=== PATIENT | female | born 1985 | race Caucasian/White ===

== ENCOUNTER 2019-03-31 21:35 | Emergency (ER) | payer OTHER ==
--- NOTE | 2019-03-31 23:10 | RAD REPORT ---
EXAM DESCRIPTION: Meagan Single View03/31/2019 11:03 pm CLINICAL HISTORY: Chest pain COMPARISON: 2008 FINDINGS: The lungs appear clear of acute infiltrate. The heart is normal size IMPRESSION: No acute abnormalities displayed
[2019-04-01 00:03] LABS: Absolute Lymphocytes (CBC) 1.4 K/uL (0.7-4.9); Basophils % 1.2 % (0-1.3); Eosinophils % 0.5 % (0-4.4); Hematocrit 37.7 % (36.0-45.0); Lymphocytes % 14.8 % (15.3-44.8); MPV 8.6 fL (7.6-11.3); Monocytes % 1.6 % (3.3-12.3); RBC Red Blood Cell Count 4.31 M/uL (3.86-4.86)
[2019-04-01 00:09] LABS: Potassium 4.3 mmol/L (3.5-5.1)
--- NOTE | 2019-04-01 02:08 | ER ---
Nurse's Notes [facility] Name: Karissa Llanos Age: 33 yrs Sex: Female : 1985 Arrival Date: 03/31/2019 Time: 21:40 Bed 30 Private MD: Eryn Lobato K Diagnosis: Bronchitis, not specified as acute or chronic Presentation: 03/31 21:52 Presenting complaint: Patient states: "I'm having shortness of breath, I couldn't sleep aj1 last night because I would have to sit up, and it was like that today." Patient also reports cough that is productive, and chest pain. States that she saw [facility] on and they gave her prednisone and a cough medication but she didn't start taking them until today. Denies fever. Transition of care: patient was not received from another setting of care. Onset of symptoms was March 31, 2019. Risk Assessment: Do you want to hurt yourself or someone else? Patient reports no desire to harm self or others. Initial Sepsis Screen: Does the patient meet any 2 criteria? No. Patient's initial sepsis screen is negative. Does the patient have a suspected source of infection? Yes: Productive cough/pneumonia. Care prior to arrival: None. 21:52 Method Of Arrival: Ambulatory aj 21:52 Acuity: SERENITY 3 aj1 Triage Assessment: 21:55 General: Appears in no apparent distress. uncomfortable, Behavior is calm, cooperative, aj1 appropriate for age. Pain: Complains of pain in chest Pain currently is 7 out of 10 on a pain scale. Neuro: Level of Consciousness is awake, alert, obeys commands, Oriented to person, place, time, situation. Cardiovascular: Reports chest pain, Patient's skin is warm and dry. Respiratory: Reports shortness of breath cough that is productive, Onset: The symptoms/episode began/occurred gradually, the patient has mild shortness of breath. 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 - Social history:: Smoking status: Patient/guardian denies using tobacco. - Ebola Screening: : Patient denies travel to an Ebola-affected area in the 21 days before illness onset. Screenin:30 Abuse screen: Denies threats or abuse. Denies injuries from another. Nutritional wh screening: No deficits noted. Tuberculosis screening: No symptoms or risk factors identified. Fall Risk None identified. Assessment: 23:05 General: Appears in no apparent distress. Behavior is calm, cooperative, appropriate wh for age. Pain: Complains of pain in chest Pain does not radiate. Pain currently is 3 out of 10 on a pain scale. Pain began 1 day ago. Neuro: Level of Consciousness is awake, alert, obeys commands, Oriented to person, place, time, situation, Appropriate for age Block Cuber are equal bilaterally. Cardiovascular: Reports chest pain, Heart tones S1 S2 Capillary refill < 3 seconds Rhythm is sinus rhythm. Respiratory: Airway is patent Respiratory effort is even, unlabored, Respiratory pattern is regular, symmetrical, Breath sounds are clear bilaterally. GI: Abdomen is flat, non-distended, Abd is soft and non tender X 4 quads. : No signs and/or symptoms were reported regarding the genitourinary system. EENT: No signs and/or symptoms were reported regarding the EENT system. Derm: Skin is intact, is healthy with good turgor, Skin is pink, warm \\T\\ dry. normal. Musculoskeletal: Range of motion: intact in all extremities. 04/01 00:35 Reassessment: Patient appears in no apparent distress at this time. Patient and/or family updated on plan of care and expected duration. Pain level reassessed. Patient is alert, oriented x 3, equal unlabored respirations, skin warm/dry/pink. 01:37 Reassessment: Patient appears in no apparent distress at this time. Patient and/or family updated on plan of care and expected duration. Pain level reassessed. Patient is alert, oriented x 3, equal unlabored respirations, skin warm/dry/pink. Vital Signs: 03/31 21:55 BP 140 / 82; Pulse 90; Resp 18; Temp 97.3; Pulse Ox 100% on R/A; Weight 108.86 kg (R); aj1 Height 5 ft. 7 in. (170.18 cm) (R); 23:02 BP 117 / 84; Pulse 81; Resp 18; Pulse Ox 98% on R/A; 04/01 00:00 BP 115 / 70; Pulse 80; Resp 18; Pulse Ox 100% on R/A; 00:30 BP 128 / 61; Pulse 91; Resp 18; Pulse Ox 94% on R/A; 01:30 BP 105 / 59; Pulse 76; Resp 16; Pulse Ox 97% on R/A; 03/31 21:55 Body Mass Index 37.59 (108.86 kg, 170.18 cm) aj1 ED Course: 03/31 21:40 Patient arrived in ED. es 21:40 Eryn Lobato MD is Private Physician. es 21:48 Dean Molina MD is Attending Physician. kdr 21:54 Triage completed. aj1 21:55 Arm band placed on Patient placed in an exam room. aj1 22:53 Jason Heart is Primary Nurse. 23:00 CXR XRAY In Process Unspecified. EDMS 23:30 Patient has correct armband on for positive identification. Bed in low position. Call light in reach. Side rails up X 1. youth nutritional monitor on. Pulse ox on. NIBP on. 23:30 Inserted saline lock: 22 gauge in right antecubital area, using aseptic technique. Blood collected. 04/01 02:07 Eryn Lobato MD is Referral Physician. kdr 02:19 No provider procedures requiring assistance completed. IV discontinued, intact, bleeding controlled, No redness/swelling at site. Administered Medications: No medications were administered Outcome: 02:08 Discharge ordered by . kdr 02:19 Discharged to home ambulatory. 02:19 Condition: good 02:19 Discharge instructions given to patient, Instructed on discharge instructions, follow up and referral plans. medication usage, POC Bronchitis Demonstrated understanding of instructions, follow-up care, medications, POC Prescriptions given X 1. 02:20 Patient left the ED. Signatures: Dispatcher [employer] Rosa Canas, RN RN aj1 Dean Molina MD MD kdr Salyer, Edna es Habalo, Winsy
--- NOTE | 2019-04-01 02:09 | EDPHYS ---
Physician Documentation [facility] Name: Karissa Llanos Age: 33 yrs Sex: Female : 1985 Arrival Date: 03/31/2019 Time: 21:40 Bed 30 Private MD: Eryn Lobato K ED Physician Dean Molina HPI: 04/01 03:21 This 33 yrs old Female presents to ER via Ambulatory with complaints of kdr Shortness Of Breath, Chest Pain. 03:21 The patient has shortness of breath at rest, with light activity. Onset: The kdr symptoms/episode began/occurred suddenly, 2 day(s) ago. Duration: The symptoms are intermittent, with no pattern. The patient's shortness of breath is aggravated by light activity. 05:48 Associated signs and symptoms: Pertinent positives: productive cough, nausea, Pertinent kdr negatives: chest pain, diaphoresis, fever, hemoptysis, loss of consciousness, visual changes, vomiting. Severity of symptoms: At their worst the symptoms were moderate today, last night, in the emergency department the symptoms have improved moderately. The patient has not experienced similar symptoms in the past. The patient has been recently seen by a physician: Utilized a teledoc and was given cough pills and steroids a few days ago but only took her first dose about 6:00 PM today. HOG KILLER: 03/31 21:55 LMP 03/2019 aj1 Historical: - Allergies: 21:55 No Known Allergies; aj1 - Home Meds: 21:55 Latuda oral oral [Active]; vybriid [Active]; aj1 - PMHx: 21:55 None; aj1 - PSHx: 21:55 Cholecystectomy; Tonsillectomy; aj1 - Immunization history:: Flu vaccine is not up to date. - Social history:: Smoking status: Patient/guardian denies using tobacco. - Ebola Screening: : Patient denies travel to an Ebola-affected area in the 21 days before illness onset. ROS: 04/01 05:48 Constitutional: Negative for fever, chills, and weight loss, Eyes: Negative for injury, kdr pain, redness, and discharge, Neck: Negative for injury, pain, and swelling, Cardiovascular: Negative for chest pain, palpitations, and edema, Abdomen/GI: Negative for abdominal pain, nausea, vomiting, diarrhea, and constipation, Back: Negative for injury and pain, : Negative for injury, bleeding, discharge, and swelling, MS/Extremity: Negative for injury and deformity, Skin: Negative for injury, rash, and discoloration, Neuro: Negative for headache, weakness, numbness, tingling, and seizure activity. Psych: Negative for depression, anxiety, suicide ideation, homicidal ideation, and hallucinations, Allergy/Immunology: Negative for hives, rash, and allergies, Endocrine: Negative for neck swelling, polydipsia, polyuria, polyphagia, and marked weight changes, Hematologic/Lymphatic: Negative for swollen nodes, abnormal bleeding, and unusual bruising. Respiratory: Positive for cough, dyspnea on exertion, shortness of breath, at rest. Exam: 05:48 Constitutional: This is a well developed, well nourished patient who is awake, alert, kdr and in no acute distress. Head/Face: Normocephalic, atraumatic. Eyes: Pupils equal round and reactive to light, extra-ocular motions intact. Lids and lashes normal. Conjunctiva and sclera are non-icteric and not injected. Cornea within normal limits. Periorbital areas with no swelling, redness, or edema. Neck: Trachea midline, no thyromegaly or masses palpated, and no cervical lymphadenopathy. Supple, full range of motion without nuchal rigidity, or vertebral point tenderness. No Meningismus. Chest/axilla: Normal chest wall appearance and motion. Nontender with no deformity. No lesions are appreciated. Cardiovascular: Regular rate and rhythm with a normal S1 and S2. No gallops, murmurs, or rubs. Normal PMI, no JVD. No pulse deficits. Respiratory: Lungs have equal breath sounds bilaterally, clear to auscultation and percussion. No rales, rhonchi or wheezes noted. No increased work of breathing, no retractions or nasal flaring. Abdomen/GI: Soft, non-tender, with normal bowel sounds. No distension or tympany. No guarding or rebound. No evidence of tenderness throughout. Back: No spinal tenderness. No costovertebral tenderness. Full range of motion. Skin: Warm, dry with normal turgor. Normal color with no rashes, no lesions, and no evidence of cellulitis. MS/ Extremity: Pulses equal, no cyanosis. Neurovascular intact. Full, normal range of motion. Neuro: Awake and alert, GCS 15, oriented to person, place, time, and situation. Cranial nerves II-XII grossly intact. Motor strength 5/5 in all extremities. Sensory grossly intact. Cerebellar exam normal. Normal gait. Psych: Awake, alert, with orientation to person, place and time. Behavior, mood, and affect are within normal limits. Vital Signs: 03/31 21:55 BP 140 / 82; Pulse 90; Resp 18; Temp 97.3; Pulse Ox 100% on R/A; Weight 108.86 kg (R); aj1 Height 5 ft. 7 in. (170.18 cm) (R); 23:02 BP 117 / 84; Pulse 81; Resp 18; Pulse Ox 98% on R/A; wh 04/01 00:00 BP 115 / 70; Pulse 80; Resp 18; Pulse Ox 100% on R/A; wh 00:30 BP 128 / 61; Pulse 91; Resp 18; Pulse Ox 94% on R/A; wh 01:30 BP 105 / 59; Pulse 76; Resp 16; Pulse Ox 97% on R/A; wh 03/31 21:55 Body Mass Index 37.59 (108.86 kg, 170.18 cm) aj1 MDM: 02:08 Patient medically screened. kdr 05:48 Data reviewed: vital signs, nurses notes, lab test result(s), radiologic studies. kdr Counseling: I had a detailed discussion with the patient and/or guardian regarding: the historical points, exam findings, and any diagnostic results supporting the discharge/admit diagnosis, lab results, radiology results, the need for outpatient follow up. 03/31 22:48 Order name: CBC with Diff; Complete Time: 01:00 kdr 03/31 22:48 Order name: Chem 7; Complete Time: 01:00 kdr 03/31 22:48 Order name: CXR XRAY; Complete Time: 23:56 kdr Administered Medications: No medications were administered Disposition: 04/01/19 02:08 Discharged to Home. Impression: Bronchitis, not specified as acute or chronic. - Condition is Stable. - Discharge Instructions: How to Use an Inhaler, Acute Bronchitis, [id number], Upper Respiratory Infection, Adult, [id number]. - Prescriptions for Albuterol Sulfate 90 mcg/actuation - inhale 1-2 puff by INHALATION route every 4-6 hours; 1 Inhaler. - Medication Reconciliation Form, Thank You Letter form. - Follow up: Eryn Lobato MD; When: 2 - 3 days; Reason: If symptoms return, Further diagnostic work-up, Recheck today's complaints, Continuance of care, Re-evaluation by your physician. - Problem is an ongoing problem. - Symptoms have improved. Signatures: Dispatcher [employer] EDRosa Cavazos RN RN aj1 Dean Molina MD MD kdr Habalo, Winsy Corrections: (The following items were deleted from the chart) 02:20 02:08 04/01/2019 02:08 Discharged to Home. Impression: Bronchitis, not specified as wh acute or chronic. Condition is Stable. Forms are Medication Reconciliation Form, Thank You Letter, Antibiotic Education, Prescription Opioid Use. Follow up: Eryn Lobato; When: 2 - 3 days; Reason: If symptoms return, Further diagnostic work-up, Recheck today's complaints, Continuance of care, Re-evaluation by your physician. Problem is an ongoing problem. Symptoms have improved. kdr
--- NOTE | 2019-04-01 09:36 | EKG ---
Test Date: 2019-03-31 Test Time: 22:38:20 Photogrammetric Compilation Specialist: MARQUIS MEASUREMENT RESULTS: Intervals: Rate: 68 SD: 116 QRSD: 84 QT: 392 QTc: 416 [place]: P: 39 SD: 116 QRS: 58 T: 38 INTERPRETIVE STATEMENTS: Normal sinus rhythm Normal ECG No previous ECG available for comparison Electronically Signed On 04-01-19 09:35:35 CDT by Gerardo Marquez
== END 2019-04-01 02:20 | disposition home or self-care (01) ==
LOC: ER 21:35
DX: J40 Bronchitis, not specified as acute or chronic (principal)
CPT/HCPCS: 36415; 71045; 80048; 85025; 93005; 99284

== ENCOUNTER 2023-12-14 11:51 | Emergency (ER) | payer BC ==
--- NOTE | 2023-12-14 13:50 | EDPHYS ---
Physician Documentation [facility] Name: Karissa Llanos Age: 38 yrs Sex: Female : 1985 Arrival Date: 12/14/2023 Time: 11:51 Bed 10 Private MD: ED Physician Al Leiva HPI: 12/13 12:36 This 38 yrs old Female presents to ER via Ambulatory with complaints of ec2 Vaginal Rash. 12:36 Arrives today due to concern for vaginal rash. Patient reports that she has been ec2 experiencing a rash in the perineum, states that it has been ongoing for several days. States that she has a burning sensation in that area. Patient reports no dysuria. Patient reports no fevers or chills, nausea or vomiting. Denies any vaginal discharge. Reports she is currently on her period.. Historical: - Allergies: 12:13 Morphine; nj1 - PMHx: 12:13 ADD; Anxiety; Depression; nj1 - PSHx: 12:13 Cholecystectomy; Gastric bypass; Tonsillectomy; nj1 - Immunization history:: Client reports receiving the 2nd dose of the Covid vaccine. - Infectious Disease History:: Denies. - Social history:: Smoking status: Reported history of juuling and/or vaping. ROS: 12:36 Constitutional: as per hpi ec2 Exam: 12:36 Constitutional: GEN: NAD Head: atraumatic Eyes: EOMI Ears: External ears are ec2 normal. CV: regular rate LUNGS: no respiratory distress ABD: non-distended, soft, nontender, no guarding, not rigid SKIN: no evidence of rashes MSK: no evidence of trauma NEURO: moves all extremities equally Vital Signs: 12:09 BP 138 / 51; Pulse 92; Resp 16; Temp 98.7(O); Pulse Ox 100% on R/A; Weight 99.79 kg; nj1 Height 5 ft. 7 in. ; Pain 7/10; 13:51 BP 133 / 66; Pulse 80; Resp 18; Pulse Ox 99% on R/A; rs5 12:09 Body Mass Index 34.46 (99.79 kg, 170.18 cm) nj1 12:09 Pain Scale: Adult nj1 MDM: 12:15 Patient medically screened. ec2 12:36 Data reviewed: vital signs. ED course: Patient arrives today due to concern for vaginal ec2 rash. Examination remarkable for well-appearing nontoxic dividual is otherwise in no acute distress with a reassuring examination. Will perform pelvic examination and send urine studies down to evaluate for GC/chlamydia, perform vaginal swabs as well.. 13:09 ED course: Vaginal examination performed under supervision, ZELDA Rivera. Multiple ec2 painful ulcerated lesions noted within the vaginal canal as well as the labia majora.. 13:10 ED course: Lesions concerning for herpes, will send HSV testing and start the patient ec2 empirically on antiviral. I extensively counseled the patient regarding safe sex practices and informing sexual partners.. 13:48 ED course: Performed an HSV swab and sent to lab. Without the patient. Plan acyclovir. ec2 Patient discharged home. Return precautions given. 14:02 ED course: Patient without any specific urinary complaints, urine does like ec2 questionably infectious however no symptoms, will defer to culture, additionally patient does have RBCs, patient is likely when her period.. 12/13 12:36 Order name: UAM; Complete Time: 14:01 ec2 12/13 12:54 Order name: GC (Dre/Chl) Probe URINE bc6 12/13 13:14 Order name: HSV Culture and Typing [facility] 12/13 13:58 Order name: Urine Culture [facility] / 12:01 Order name: Pelvic Exam Setup; Complete Time: 12:18 ec2 Administered Medications: No medications were administered Disposition Summary: 12/14/23 13:49 Discharge Ordered Notes: Location: Home ec2 Condition: Stable ec2 Diagnosis - Vaginal Rash ec2 Followup: ec2 - With: Private Physician - When: - Reason: Re-evaluation by your physician Discharge Instructions: - Discharge Summary Sheet ec2 - Genital Herpes ec2 Forms: - Medication Reconciliation Form ec2 - Thank You Letter ec2 - Antibiotic Education ec2 - Prescription Opioid Use ec2 - Patient Portal Instructions ec2 - Leadership Thank You Letter ec2 Prescriptions: - valacyclovir 1 gram Oral tablet - take 1 tablet ORAL route 2 times per day for 7 days; 14 tablet; Refills: 0, ec2 Product Selection Permitted - Acyclovir 400 mg Oral tablet - take 1 tablet ORAL route every 8 hours for 7 days; 21 tablet; Refills: 0, ec2 Product Selection Permitted Signatures: Dispatcher [employer] Marielena Clemens, RN RN nj1 Al Leiva, MD ec2
--- NOTE | 2023-12-14 13:50 | ER ---
Nurse's Notes [facility] Name: Karissa Llanos Age: 38 yrs Sex: Female : 1985 Arrival Date: 12/14/2023 Time: 11:51 Bed 10 Private MD: Diagnosis: Vaginal Rash Presentation: 12/13 12:09 Chief complaint: Patient states: Vaginal pain for 3 days along with irritation and nj1 burning sensation. Tried to call OBGYN, no answer. Coronavirus screen: Vaccine status: Patient reports receiving the 2nd dose of the covid vaccine. Ebola Screen: Patient denies travel to an Ebola-affected area in the 21 days before illness onset. Initial Sepsis Screen: Does the patient meet any 2 criteria? No. Patient's initial sepsis screen is negative. Does the patient have a suspected source of infection? No. Patient's initial sepsis screen is negative. Risk Assessment: Do you want to hurt yourself or someone else? Patient reports no desire to harm self or others. Onset of symptoms was December 12, 2023. 12:09 Method Of Arrival: Ambulatory [facility] 12:09 Acuity: SERENITY 4 nj1 Triage Assessment: 12:10 General: Appears in no apparent distress. uncomfortable, Behavior is calm, cooperative, nj1 appropriate for age. Historical: - Allergies: 12:13 Morphine; nj1 - PMHx: 12:13 ADD; Anxiety; Depression; nj1 - PSHx: 12:13 Cholecystectomy; Gastric bypass; Tonsillectomy; nj1 - Immunization history:: Client reports receiving the 2nd dose of the Covid vaccine. - Infectious Disease History:: Denies. - Social history:: Smoking status: Reported history of juuling and/or vaping. Screenin:16 [facility] ED Fall Risk Assessment (Adult) History of falling in the last 3 months, rs5 including since admission No falls in past 3 months (0 pts) Confusion or Disorientation No (0 pts) Intoxicated or Sedated No (0 pts) Impaired Gait No (0 pts) Mobility Assist Device Used No (0 pt) Altered Elimination No (0 pt) Score/Fall Risk Level 0 - 2 = Low Risk Oriented to surroundings, Maintained a safe environment. Abuse screen: Denies threats or abuse. Nutritional screening: No deficits noted. Tuberculosis screening: No symptoms or risk factors identified. Assessment: 12:15 General: Appears in no apparent distress. uncomfortable, Behavior is calm, cooperative. rs5 12:15 Pain: Complains of pain in vaginal area Pain currently is 4 out of 10 on a pain scale. rs5 Quality of pain is described as aching, Is continuous. 12:15 Neuro: Level of Consciousness is awake, alert, obeys commands, Oriented to person, rs5 place, time, situation. Cardiovascular: Patient's skin is warm and dry. Rhythm is regular. Respiratory: Airway is patent Respiratory effort is even, unlabored, Respiratory pattern is regular, symmetrical. GI: Abdomen is round non-distended, Abd is soft and non tender X 4 quads. : Reports vaginal itching. EENT: No signs and/or symptoms were reported regarding the EENT system. Derm: Skin is pink, warm \T\ dry. Musculoskeletal: Circulation, motion, and sensation intact. 13:06 Reassessment: No changes from previously documented assessment. rs5 13:50 Reassessment: Patient and/or family updated on plan of care and expected duration. Pain rs5 level reassessed. Patient is alert, oriented x 3, equal unlabored respirations, skin warm/dry/pink. provider at bedside. Vital Signs: 12:09 BP 138 / 51; Pulse 92; Resp 16; Temp 98.7(O); Pulse Ox 100% on R/A; Weight 99.79 kg; nj1 Height 5 ft. 7 in. ; Pain 7/10; 13:51 BP 133 / 66; Pulse 80; Resp 18; Pulse Ox 99% on R/A; rs5 12:09 Body Mass Index 34.46 (99.79 kg, 170.18 cm) nj1 12:09 Pain Scale: Adult nj1 ED Course: 11:52 Patient arrived in ED. rg4 12:00 Al Leiva MD is Attending Physician. ec2 12:13 Triage completed. nj1 12:15 Arm band placed on right wrist. nj1 12:16 Patient has correct armband on for positive identification. Placed in gown. Bed in low rs5 position. Call light in reach. Side rails up X2. 12:16 No provider procedures requiring assistance completed. rs5 12:41 Christina Rao, RN is Primary Nurse. iw 13:00 GC (Dre/Chl) Probe URINE Sent. bc6 13:00 UAM Sent. bc6 14:02 Patient did not have IV access during this emergency room visit. rs5 Administered Medications: No medications were administered Medication: 13:08 VIS not applicable for this client. rs5 Outcome: 13:49 Discharge ordered by . ec2 14:02 Discharged to home ambulatory, rs5 14:02 Condition: stable 14:02 Discharge instructions given to patient, family, Instructed on discharge instructions, follow up and referral plans. medication usage, Demonstrated understanding of instructions, follow-up care, medications, Prescriptions given X 2, 14:02 Patient left the ED. rs5 Signatures: Christina Rao, RN RN Lili Chou 4 Kenny Love RN RN rs5 Cassie Reyna 6 Marielena Can RN RN nj1 Al Leiva MD MD ec2 Corrections: (The following items were deleted from the chart) 12:45 12:05 General: Appears in no apparent distress. uncomfortable, Behavior is calm, nj1 cooperative, appropriate for age, nj1 13:06 12:15 General: Appears rs5 rs5
[2023-12-14 13:55] LABS: Specific Gravity > 1.030 (1.005-1.030); Urine Bacteria 20-50 /HPF (<20); Urine Bilirubin NEGATIVE (Negative); Urine Blood 3+ (OVER) (Negative); Urine Clarity Extremely Turbid (Clear); Urine Color Yellow (Yellow); Urine Culture Reflex Order REFLEXED; Urine Glucose 2+ (Negative); Urine Ketones TRACE (Negative); Urine Micro Reflex YN NO BILL MICROSCOPIC; Urine Mucus 4+ /HPF (None Seen); Urine Nitrite NEGATIVE (Negative); Urine Protein 1+ (Negative); Urine RBC >50 /HPF (None Seen); Urine Urobilinogen 2+ (Normal); Urine WBC >50 /HPF (<5)
[2023-12-14 19:11] VITALS: BP 133/66; TEMP 98.7; O2SAT 99
[2023-12-16 19:11] LABS: C.trachomatis RNA,TMA Not Detected (Not Detected); N.gonorrhoeae RNA,TMA Not Detected (Not Detected)
== END 2023-12-14 14:02 | disposition home or self-care (01) ==
LOC: ER 11:51
DX: R21 Rash and other nonspecific skin eruption (principal); Z88.5 Allergy status to narcotic agent
CPT/HCPCS: 81001; 87077; 87086; 87088; 87186; 87255; 87490; 87590; 99283

== ENCOUNTER 2024-10-23 15:04 | Emergency (ER) | payer BC, SELFPAY ==
[2024-10-23] MEDS ORDERED: KETOROLAC 30 MG/ML INJ ONE (15:40)
[2024-10-23 16:09] LABS: Absolute Eosinophils 0.1 K/uL (0-0.5); Absolute Monocytes 0.5 K/uL (0.1-1.3); Absolute Neutrophil 3.8 K/uL (1.8-8.0); Basophils % 0.9 % (0-1.3); Eosinophils % 2.5 % (0-4.4); Hematocrit 23.6 % (36.0-45.0); Hemoglobin 6.9 g/dL (12.0-15.0); Lymphocytes % 18.1 % (15.3-44.8); MCH 18.1 pg (27.0-35.0); MCHC 29.2 g/dL (32.0-36.0); MCV 61.9 fL (80-100); MPV 7.5 fL (7.6-11.3); Monocytes % 8.7 % (3.3-12.3); Neutrophils % 69.8 % (41.7-73.7); Nucleated Red Blood Cells % 0.1 % (0-0); Platelets 264 thou/uL (152-406); RBC Red Blood Cell Count 3.82 M/uL (3.86-4.86); Red Cell Distribution Width 17.4 % (12.1-15.2)
[2024-10-23 16:10] LABS: Blood Morphology Comment NOTED (NOT SEEN); Hypochromasia 2+; Microcytosis 2+; Platelet Estimate ADEQ; White Blood Cell Scan OK (OK)
[2024-10-23 16:20] LABS: Anion Gap 8.9 mEq/L (5.0-15.0); Potassium 3.9 mEq/L (3.5-5.1)
--- NOTE | 2024-10-23 16:37 | RAD REPORT ---
EXAM: Chest Single View HISTORY: Cough;Dyspnea COMPARISON: 03/31/2019 FINDINGS: LUNGS/PLEURA: The lungs are clear. No pleural effusions or pneumothorax. No pulmonary edema. MEDIASTINUM: The mediastinal silhouette is within normal limits. CARDIAC: The cardiac silhouette is within normal limits. UPPER ABDOMEN: No significant abnormality. BONES: No acute abnormality. LINES/TUBES/OTHER: N/A IMPRESSION: No evidence of acute cardiopulmonary disease.
[2024-10-23 16:41] LABS: SARS-CoV-2 Antigen CONTROL BLUE LINE VIS/BG OK; SARS-CoV-2 Antigen Rapid Res Negative (Negative)
[2024-10-23 17:19] LABS: Thyroid Stimulating Hormone 0.886 uIU/mL (0.358-3.740)
[2024-10-23] MEDS ORDERED: NA CHLORIDE 0.9% 500 ML ONE (19:30)
[2024-10-23] MEDS ORDERED: ACETAMINOPHEN 500 MG TAB ONE (20:17)
--- NOTE | 2024-10-24 01:48 | EDPHYS ---
Physician Documentation [facility] Name: Karissa Llanos Age: 39 yrs Sex: Female : 1985 Arrival Date: 10/23/2024 Time: 15:04 Bed 19 Private MD: ED Physician Al Leiva HPI: 10/23 16:07 This 39 yrs old Female presents to ER via Wheelchair with complaints of General rn Weakness, Other, throat problem. 16:07 Patient reports generalized weakness, malaise, myalgias that began today. Associated rn with sore throat. No documented fever but reports subjective fever and chills. No shortness of breath. Does report mild cough.. Onset: The symptoms/episode began/occurred today. Severity of symptoms: At their worst the symptoms were mild in the emergency department the symptoms are unchanged. The patient has not experienced similar symptoms in the past. The patient has not recently seen a physician. Historical: - Allergies: 15:23 Morphine; aa5 - PMHx: 15:23 ADD; Anxiety; Depression; aa5 - PSHx: 15:23 Cholecystectomy; Gastric Bypass; Tonsillectomy; aa5 - Immunization history:: Adult Immunizations unknown. - Infectious Disease History:: Denies. - Social history:: Smoking status: Reported history of juuling and/or vaping. - Family history:: pertinent for Rheumatologic problems. - Hospitalizations: : No recent hospitalization is reported. ROS: 16:07 Constitutional: Positive for subjective fever Eyes: Negative for injury, pain, redness, rn and discharge, ENT: Positive for sore throat Neck: Negative for injury, pain, and swelling, Cardiovascular: Negative for chest pain, palpitations, and edema, Respiratory: Positive for cough Abdomen/GI: Negative for abdominal pain, nausea, vomiting, diarrhea, and constipation, MS/Extremity: Negative for injury and deformity, Skin: Negative for injury, rash, and discoloration, Neuro: Positive for generalized weakness and malaise with myalgias Exam: 16:07 Constitutional: This is a well developed, well nourished patient who is awake, alert, rn and in no acute distress. Head/Face: Normocephalic, atraumatic. ENT: No stridor, mild pharyngeal erythema, no exudate Neck: Nontender cervical lymphadenopathy. No crepitus. No meningismus Cardiovascular: Regular rate and rhythm. No pulse deficits. Respiratory: No increased work of breathing, no retractions or nasal flaring. Skin: Warm, dry, no rash MS/ Extremity: Pulses equal, no cyanosis. Neuro: Awake and alert, GCS 15 Vital Signs: 15:21 BP 124 / 91; Pulse 96; Resp 18 S; Temp 98.7(O); Pulse Ox 100% on R/A; Weight 95.25 kg aa5 (R); Height 5 ft. 7 in. (R); 19:00 BP 134 / 97; Pulse 88; Resp 16; Temp 98; Pulse Ox 100% ; bp 19:38 BP 120 / 78; Pulse 87; Resp 16; Temp 98.4(O); Pulse Ox 100% on R/A; dd2 22:23 BP 128 / 67; Pulse 86; Resp 16; Temp 98.2; Pulse Ox 100% on R/A; dd2 22:47 BP 130 / 54; Pulse 90; Resp 16; Temp 98.3(O); Pulse Ox 100% on R/A; dd2 10/24 01:35 BP 124 / 74; Pulse 84; Resp 16; Temp 98.3; Pulse Ox 100% on R/A; dd2 10/23 15:21 Body Mass Index 32.89 (95.25 kg, 170.18 cm) [place] [employer] [facility] 10/23 19:38 see transfusion flow sheet for v/s dd2 22:47 see transfusion flow sheet for v/s dd2 MDM: 15:09 Medical Screening Exam initiated rn 20:00 Data reviewed: vital signs, nurses notes. ED course: Patient s/o to nh w/ pending blood ec2 tx, hx of CHALINO, plan to transfuse then d/c. 10/24 01:47 ED course: Patient tolerated blood transfusion without issue. Will discharge home. ec2 Return precautions given.. 10/23 17:09 Order name: Type And Screen rn 10/23 15:15 Order name: Flu; Complete Time: 16:54 rn 10/23 15:15 Order name: SARS-COV-2 Antigen Rapid; Complete Time: 16:54 rn 10/23 15:15 Order name: Strep rn 10/23 15:15 Order name: CK; Complete Time: 16:54 rn 10/23 15:15 Order name: CBC with Diff; Complete Time: 16:54 rn 10/23 15:15 Order name: Basic Metabolic Panel; Complete Time: 16:54 rn 10/23 15:21 Order name: TSH; Complete Time: 18:11 rn 10/23 15:21 Order name: T4 Free; Complete Time: 18:11 rn 10/23 16:10 Order name: CBC Smear Scan; Complete Time: 16:54 EDMS 10/23 16:45 Order name: Throat Culture ED[facility] 10/23 17:12 Order name: Bb Add On bd 10/23 18:11 Order name: Packed RBC Leukored ED[facility] 10/23 18:30 Order name: ABO/RH no charge; Complete Time: 20:57 EDMS 10/23 15:15 Order name: XRAY Chest (1 view); Complete Time: 16:54 rn 10/23 15:15 Order name: EKG; Complete Time: 15:15 rn 10/23 15:15 Order name: IV Start; Complete Time: 15:52 rn 10/23 15:15 Order name: EKG - Nurse/Tech; Complete Time: 19:32 rn 10/23 18:11 Order name: Transfuse; Complete Time: 01:35 rn Administered Medications: 10/23 15:52 Drug: Ketorolac IVP 15 mg IVP once Route: IVP; Site: right antecubital; bp 16:55 Follow up: Response: No adverse reaction bp 20:28 Drug: Acetaminophen PO 1000 mg PO once Route: PO; dd2 20:58 Follow up: Response: No adverse reaction dd2 Disposition Summary: 10/24/24 01:47 Discharge Ordered Notes: Location: Home ec2 Condition: Stable ec2 Diagnosis - Anemia, unspecified ec2 Followup: ec2 - With: Private Physician - When: - Reason: Re-evaluation by your physician Discharge Instructions: - Discharge Summary Sheet ec2 - Blood Transfusion, Adult ec2 Forms: - Medication Reconciliation Form ec2 - Antibiotic Education ec2 - Prescription Opioid Use ec2 - Patient Portal Instructions ec2 - Leadership Thank You Letter ec2 - Work release form dd2 Critical care time excluding procedures: 20:59 Critical care time: Bedside Care: 30 minutes. Total time: 30 minutes ec2 Signatures: Dispatcher [employer] EDDavid Pittman MD MD rn Calderon, Audri, RN RN aa5 Carl Dave RN RN bp Al Leiva MD MD ec2 BESSIE GALLEGOS RN RN dd2 Corrections: (The following items were deleted from the chart) 15: 15:21 THYROID STIMULAT HORMONE+C.LAB.BRZ ordered. EDMS EDMS 15: 15:21 T4 FREE+C.LAB.BRZ ordered. EDMS EDMS
--- NOTE | 2024-10-24 01:48 | ER ---
Nurse's Notes [facility] Name: Karissa Llanos Age: 39 yrs Sex: Female : 1985 Arrival Date: 10/23/2024 Time: 15:04 Bed 19 Private MD: Diagnosis: Anemia, unspecified Presentation: 10/23 15:21 Chief complaint: Patient states: Body aches that started today, pt states "my legs hurt aa5 the worst and it hurt so bad just driving here". Pt states "my esophagus just feels like it closes up and it hurts to eat". Coronavirus screen: muscle pain. Ebola Screen: Patient denies travel to an Ebola-affected area in the 21 days before illness onset. Initial Sepsis Screen: Does the patient meet any 2 criteria? HR > 90 bpm. Does the patient have a suspected source of infection? No. Patient's initial sepsis screen is negative. Risk Assessment: Do you want to hurt yourself or someone else? Patient reports no desire to harm self or others. Onset of symptoms was October 2024. 15:21 Acuity: SERENITY 3 aa5 15:21 Method Of Arrival: Wheelchair aa5 Triage Assessment: 15:30 General: Appears in no apparent distress. Behavior is cooperative, appropriate for age, bp anxious. Pain: Complains of pain in GENERALIZED. EENT: No deficits noted. Neuro: No deficits noted. Cardiovascular: No deficits noted. Respiratory: No deficits noted. GI: No signs and/or symptoms were reported involving the gastrointestinal system. : No signs and/or symptoms were reported regarding the genitourinary system. Derm: No deficits noted. Musculoskeletal: No deficits noted. Historical: - Allergies: 15:23 Morphine; aa5 - PMHx: 15:23 ADD; Anxiety; Depression; aa5 - PSHx: 15:23 Cholecystectomy; Gastric Bypass; Tonsillectomy; aa5 - Immunization history:: Adult Immunizations unknown. - Infectious Disease History:: Denies. - Social history:: Smoking status: Reported history of juuling and/or vaping. - Family history:: pertinent for Rheumatologic problems. - Hospitalizations: : No recent hospitalization is reported. Screenin:30 [facility] ED Fall Risk Assessment (Adult) History of falling in the last 3 months, bp including since admission No falls in past 3 months (0 pts) Confusion or Disorientation No (0 pts) Intoxicated or Sedated No (0 pts) Impaired Gait No (0 pts) Mobility Assist Device Used No (0 pt) Altered Elimination No (0 pt) Score/Fall Risk Level 0 - 2 = Low Risk Oriented to surroundings. Abuse screen: Denies threats or abuse. Denies injuries from another. Nutritional screening: No deficits noted. Tuberculosis screening: No symptoms or risk factors identified. Assessment: 15:30 General: Appears in no apparent distress. obese, Behavior is cooperative, appropriate bp for age, anxious. 17:00 Reassessment: Patient appears in no apparent distress at this time. Patient is alert, bp oriented x 3, equal unlabored respirations, skin warm/dry/pink. 19:00 Reassessment: PT CONSENTED FOR PRBC TRANSFUSION, BLOOD PENDING FROM BLOOD BANK Patient bp denies pain at this time. 21:17 Reassessment: Patient is alert, oriented x 3, equal unlabored respirations, skin dd2 warm/dry/pink. PT TOLERATING BLOOD TRANSFUSION WELL. NAD NOTED. 10/24 01:10 Reassessment: Patient and/or family updated on plan of care and expected duration. Pain dd2 level reassessed. Patient is alert, oriented x 3, equal unlabored respirations, skin warm/dry/pink. Patient states feeling better. Patient states symptoms have improved. Vital Signs: 10/23 15:21 BP 124 / 91; Pulse 96; Resp 18 S; Temp 98.7(O); Pulse Ox 100% on R/A; Weight 95.25 kg aa5 (R); Height 5 ft. 7 in. (R); 19:00 BP 134 / 97; Pulse 88; Resp 16; Temp 98; Pulse Ox 100% ; bp 19:38 BP 120 / 78; Pulse 87; Resp 16; Temp 98.4(O); Pulse Ox 100% on R/A; dd2 22:23 BP 128 / 67; Pulse 86; Resp 16; Temp 98.2; Pulse Ox 100% on R/A; dd2 22:47 BP 130 / 54; Pulse 90; Resp 16; Temp 98.3(O); Pulse Ox 100% on R/A; dd2 10/24 01:35 BP 124 / 74; Pulse 84; Resp 16; Temp 98.3; Pulse Ox 100% on R/A; dd2 10/23 15:21 Body Mass Index 32.89 (95.25 kg, 170.18 cm) aa5 02 19:38 see transfusion flow sheet for v/s dd2 22:47 see transfusion flow sheet for v/s dd2 ED Course: 15:07 Patient arrived in ED. al6 15:09 David Cortes MD is Attending Physician. rn 15:21 Arm band placed on. aa5 15:23 Triage completed. aa5 15:30 Patient has correct armband on for positive identification. bp 15:38 Carl Dave, RN is Primary Nurse. bp 15:52 Initial lab(s) drawn, by me, sent to lab. Inserted saline lock: 22 gauge in right bp antecubital area, using aseptic technique. Blood collected. 16:22 XRAY Chest (1 view) In Process Unspecified. EDMS 20:00 Attending Physician role handed off by David Cortes MD ec2 20:00 Al Leiva MD is Attending Physician. ec2 20:10 No provider procedures requiring assistance completed. Patient maintains SpO2 dd2 saturation greater than 95% on room air. 20:10 EKG done, by ED staff, reviewed by Al Leiva MD. dd2 10/24 02:08 IV discontinued, intact, bleeding controlled, No redness/swelling at site. Pressure dd2 dressing applied. 02:09 Provided Education on: d/c education. dd2 Administered Medications: 10/23 15:52 Drug: Ketorolac IVP 15 mg IVP once Route: IVP; Site: right antecubital; bp 16:55 Follow up: Response: No adverse reaction bp 20:28 Drug: Acetaminophen PO 1000 mg PO once Route: PO; dd2 20:58 Follow up: Response: No adverse reaction dd2 Medication: 17:18 VIS not applicable for this client. bp Outcome: 10/24 01:47 Discharge ordered by . ec2 02:08 Discharged to home ambulatory, dd2 02:08 Condition: stable 02:08 Discharge instructions given to patient, Instructed on discharge instructions, follow up and referral plans. Demonstrated understanding of instructions, follow-up care, 02:09 Patient left the ED. dd2 Signatures: Dispatcher [employer] EDMI David Cortes MD MD rn Calderon, Audri, RN RN aa5 Carl Dave RN RN bp Al Leiva MD MD ec2 BESSIE GALLEGOS RN RN dd2 Mely [email or web address] Corrections: (The following items were deleted from the chart) 02:08 10/23 22:47 BP 130 / 54; Pulse 90bpm; Resp 16bpm; Pulse Ox 100% RA; Temp 98.3F Oral; dd2dd2
[2024-10-24 05:22] VITALS: O2SAT 100
[2024-10-24 05:27] VITALS: TEMP 98.3
[2024-10-24 05:28] VITALS: BP 124/74
--- NOTE | 2024-10-25 11:49 | EKG ---
Test Date: 2024-10-23 Test Time: 19:24:36 Plating Engineer: LIANET MEASUREMENT RESULTS: Intervals: Rate: 87 MA: 136 QRSD: 80 QT: 358 QTc: 430 [place]: P: 54 MA: 136 QRS: 68 T: 45 INTERPRETIVE STATEMENTS: Normal sinus rhythm Normal ECG Compared to ECG 12/21/2022 15:55:34 No significant changes Electronically Signed On 10-25-24 11:48:26 MIG TIG WELDER by Avel Salcedo
== END 2024-10-24 02:09 | disposition home or self-care (01) ==
LOC: ER 15:04
PROC: 30233N1 Transfusion of Nonautologous Red Blood Cells into Peripheral Vein, Percutaneous Approach (ICD-10-PCS; principal; 2024-10-24)
DX: D64.9 Anemia, unspecified (principal); R05.9 Cough, unspecified; R07.0 Pain in throat; Z11.52 Encounter for screening for COVID-19
CPT/HCPCS: 36415; 71045; 80048; 82550; 84439; 84443; 85025; 86850; 86900; 86901; 86920; 87070; 87081; 87804; 87811; 93005; J7040; P9016

== ENCOUNTER 2024-11-10 09:38 | Emergency (ER) | payer BC, SELFPAY ==
[2024-11-10] MEDS ORDERED: NA CHLORIDE 0.9% 1,000 ML ONE (11:19)
[2024-11-10 11:28] LABS: Absolute Eosinophils 0.1 K/uL (0-0.5); Absolute Lymphocytes (CBC) 1.4 K/uL (0.7-4.9); Absolute Monocytes 0.5 K/uL (0.1-1.3); Absolute Neutrophil 3.9 K/uL (1.8-8.0); Basophils % 0.7 % (0-1.3); Hematocrit 31.9 % (36.0-45.0); Hemoglobin 9.6 g/dL (12.0-15.0); Lymphocytes % 24.2 % (15.3-44.8); MCH 19.9 pg (27.0-35.0); MCV 66.2 fL (80-100); MPV 7.8 fL (7.6-11.3); Monocytes % 8.2 % (3.3-12.3); Neutrophils % 65.9 % (41.7-73.7); Platelets 530 thou/uL (152-406); RBC Red Blood Cell Count 4.82 M/uL (3.86-4.86); Red Cell Distribution Width 23.1 % (12.1-15.2)
[2024-11-10 11:30] LABS: Protime INR 1.06
[2024-11-10 11:44] LABS: Albumin 3.8 g/dL (3.4-5.0); Albumin/Globulin Ratio 0.9 (1.1-1.8); Anion Gap 9.1 mEq/L (5.0-15.0); Bilirubin Total 0.4 mg/dL (0.2-1.0); Globulin 4.3 g/dL (2.3-3.5); Potassium 4.1 mEq/L (3.5-5.1); Protein, Total 8.1 g/dL (6.4-8.2)
[2024-11-10 11:50] LABS: Percent Reticulocyte Count 1.03 % (0.4-2.05); RBC Red Blood Cell Count 4.72 M/uL (3.86-4.86)
--- NOTE | 2024-11-10 12:03 | ER ---
Nurse's Notes [facility] Name: Karissa Llanos Age: 39 yrs Sex: Female : 1985 Arrival Date: 11/10/2024 Time: 09:38 Bed 20 Private MD: Diagnosis: Iron deficiency anemia secondary to blood loss (chronic);Iron deficiency anemia, unspecified;Dizziness and giddiness Presentation: 11/10 10:40 Chief complaint: Patient states: Reports feeling anemic, recent transfusion on 10/23/24, jl7 LMP started 10/29/24 and feeling weak and seeing stars on standing since, appointment with cancer center on November 24 for another transfusion, instructed to come to ED. Coronavirus screen: At this time, the client does not indicate any symptoms associated with coronavirus-19. Ebola Screen: No symptoms or risks identified at this time. Initial Sepsis Screen: Does the patient meet any 2 criteria? No. Patient's initial sepsis screen is negative. Does the patient have a suspected source of infection? No. Patient's initial sepsis screen is negative. Risk Assessment: Do you want to hurt yourself or someone else? Patient reports no desire to harm self or others. Onset of symptoms is unknown. Care prior to arrival: None. 10:40 Method Of Arrival: Wheelchair jl7 10:40 Acuity: SERENITY 3 jl7 Triage Assessment: 10:44 General: Appears in no apparent distress. uncomfortable, Behavior is calm, cooperative, jl7 appropriate for age. Pain: Complains of pain in headache Pain currently is 7 out of 10 on a pain scale. CARDIOVASCULAR PHYSICIAN ASSISTANT: 10:44 LMP 10/29/2024, unknown jl7 Historical: - Allergies: 10:44 Morphine; jl7 - PMHx: 10:44 ADD; Anxiety; Depression; Anemia; jl7 - PSHx: 10:44 Cholecystectomy; Gastric Bypass; Tonsillectomy; jl7 - Immunization history:: Adult Immunizations unknown. - Infectious Disease History:: Denies. - Social history:: Smoking status: Reported history of juuling and/or vaping. - Family history:: not pertinent. Screenin:05 [facility] ED Fall Risk Assessment (Adult) History of falling in the last 3 months, aa5 including since admission No falls in past 3 months (0 pts) Confusion or Disorientation No (0 pts) Intoxicated or Sedated No (0 pts) Impaired Gait No (0 pts) Mobility Assist Device Used No (0 pt) Altered Elimination No (0 pt) Score/Fall Risk Level 0 - 2 = Low Risk Oriented to surroundings, Maintained a safe environment, Educated pt \T\ family on fall prevention, incl call for assistance when getting out of bed, Assessed \T\ reinforced patient's understanding of fall precautions. Abuse screen: Denies threats or abuse. Nutritional screening: No deficits noted. Tuberculosis screening: No symptoms or risk factors identified. Assessment: 11:05 General: Appears comfortable, Behavior is calm, cooperative. Pain: Denies pain. Neuro: aa5 Level of Consciousness is awake, alert, obeys commands, Oriented to person, place, time, situation, Restuarant Crew Worker are equal bilaterally Moves all extremities. Gait is steady, Speech is normal, Facial symmetry appears normal, Reports dizziness. Cardiovascular: Heart tones S1 S2 present Rhythm is regular. Respiratory: Airway is patent Respiratory effort is even, unlabored, Respiratory pattern is regular, symmetrical. GI: No signs and/or symptoms were reported involving the gastrointestinal system. : Pt reports heavy menstrual periods with clots, currently denies any bleeding. EENT: No signs and/or symptoms were reported regarding the EENT system. Derm: Skin is pink, warm \T\ dry. Musculoskeletal: Range of motion: intact in all extremities. 12:14 Reassessment: Awaiting US, pt aware. . aa5 12:21 Reassessment: Pt to US now via wheelchair. . aa5 13:00 Reassessment: Patient is alert, oriented x 3, equal unlabored respirations, skin aa5 warm/dry/pink. Vital Signs: 10:40 BP 118 / 90; Pulse 105; Resp 17; Temp 97.5; Pulse Ox 98% ; Weight 95.25 kg; Height 5 jl7 ft. 7 in. ; Pain 7/10; 13:38 BP 136 / 87; Pulse 94; Resp 16; Pulse Ox 98% on R/A; Pain 0/10; iw 10:40 Body Mass Index 32.89 (95.25 kg, 170.18 cm) jl7 10:40 Pain Scale: Adult jl7 13:38 Pain Scale: Adult iw ED Course: 09:41 Patient arrived in ED. al6 09:47 Yunior Lopez MD is Attending Physician. [facility] 10:44 Triage completed. jl7 10:44 Arm band placed on right wrist. jl7 10:52 Selene Sanz, RN is Primary Nurse. aa5 11:05 Patient has correct armband on for positive identification. Placed in gown. Bed in low aa5 position. Call light in reach. Side rails up X 1. Pulse ox on. NIBP on. 11:10 Initial lab(s) drawn, by pa, sent to lab. T\T\S collected, blood band applied to patient. aa5 Inserted saline lock: 20 gauge in right antecubital area, using aseptic technique. Blood collected. Flushed with 10 mL NS. 11:55 EKG done, by ED staff, reviewed by Yunior Lopez MD. aa5 12:02 Dawna Prado MD is Referral Physician. [facility] 12:22 No provider procedures requiring assistance completed. aa5 12:39 US Transvaginal Study (Probe) In Process Unspecified. EDTN 13:39 IV discontinued, intact, bleeding controlled, No redness/swelling at site. Pressure iw dressing applied. Administered Medications: 11:24 Drug: NS 0.9% IV 1000 ml IV at 1000 ml once; to be given as a bolus over 60 minutes aa5 Route: IV; Rate: 1000 ml; Site: right antecubital; 13:40 Follow up: IV Status: Completed infusion iw 12:12 Drug: Ativan IVP 1 mg IVP once Route: IVP; Site: right antecubital; aa5 13:40 Follow up: Response: No adverse reaction iw Medication: 12:20 VIS not applicable for this client. aa5 Outcome: 12:03 Discharge ordered by . freddy 13:39 Discharged to home ambulatory, iw 13:39 Condition: good 13:39 Discharge instructions given to patient, Instructed on discharge instructions, follow up and referral plans. medication usage, Demonstrated understanding of instructions, follow-up care, medications, Prescriptions given X 1, 13:39 Patient left the ED. iw Signatures: Dispatcher [employer] Yunior Ann MD MD cha Williams, Irene, RN RN iw Selene Sanz, RN RN aa5 Silvia Li RN RN jl7 Mely [email or web address]
--- NOTE | 2024-11-10 12:03 | EDPHYS ---
Physician Documentation [facility] Name: Karissa Llanos Age: 39 yrs Sex: Female : 1985 Arrival Date: 11/10/2024 Time: 09:38 Bed 20 Private MD: ZELDA Physician Yunior Lopez HPI: 11/10 11:54 This 39 yrs old Female presents to ER via Wheelchair with complaints of freddy Dizziness, Anemia. 11:54 The patient presents with dizziness, generalized weakness. Onset: The symptoms/episode freddy began/occurred 2 day(s) ago. Context: occurred while the patient was standing, walking. Modifying factors: The symptoms are alleviated by lying down, the symptoms are aggravated by standing up, changing position. Associated signs and symptoms: Pertinent positives: DIZZY. Severity of symptoms: At their worst the symptoms were mild moderate in the emergency department the symptoms are unchanged. The patient has experienced similar episodes in the past, multiple times. ATHLETIC MONITOR: 10:44 LMP 10/29/2024, unknown jl7 Historical: - Allergies: 10:44 Morphine; jl7 - PMHx: 10:44 ADD; Anxiety; Depression; Anemia; jl7 - PSHx: 10:44 Cholecystectomy; Gastric Bypass; Tonsillectomy; jl7 - Immunization history:: Adult Immunizations unknown. - Infectious Disease History:: Denies. - Social history:: Smoking status: Reported history of juuling and/or vaping. - Family history:: not pertinent. ROS: 11:54 Constitutional: Negative for fever, chills, and weight loss, Eyes: Negative for injury, freddy pain, redness, and discharge, ENT: Negative for injury, pain, and discharge, Neck: Negative for injury, pain, and swelling, Cardiovascular: Negative for chest pain, palpitations, and edema, Respiratory: Negative for shortness of breath, cough, wheezing, and pleuritic chest pain, Abdomen/GI: Negative for abdominal pain, nausea, vomiting, diarrhea, and constipation, Back: Negative for injury and pain, : Negative for injury, bleeding, discharge, and swelling, MS/Extremity: Negative for injury and deformity, Skin: Negative for injury, rash, and discoloration, Psych: Negative for depression, anxiety, suicide ideation, homicidal ideation, and hallucinations, Allergy/Immunology: Negative for hives, rash, and allergies, Endocrine: Negative for neck swelling, polydipsia, polyuria, polyphagia, and marked weight changes, Hematologic/Lymphatic: Negative for swollen nodes, abnormal bleeding, and unusual bruising, 11:54 Neuro: Positive for dizziness, weakness, Exam: 11:54 Constitutional: This is a well developed, well nourished patient who is awake, alert, freddy and in no acute distress. Head/Face: Normocephalic, atraumatic. Eyes: Pupils equal round and reactive to light, extra-ocular motions intact. Lids and lashes normal. Conjunctiva and sclera are non-icteric and not injected. Cornea within normal limits. Periorbital areas with no swelling, redness, or edema. ENT: Nares patent. No nasal discharge, no septal abnormalities noted. Tympanic membranes are normal and external auditory canals are clear. Oropharynx with no redness, swelling, or masses, exudates, or evidence of obstruction, uvula midline. Mucous membranes moist. Neck: Trachea midline, no thyromegaly or masses palpated, and no cervical lymphadenopathy. Supple, full range of motion without nuchal rigidity, or vertebral point tenderness. No Meningismus. Chest/axilla: Normal chest wall appearance and motion. Nontender with no deformity. No lesions are appreciated. Cardiovascular: Regular rate and rhythm with a normal S1 and S2. No gallops, murmurs, or rubs. Normal PMI, no JVD. No pulse deficits. Respiratory: Lungs have equal breath sounds bilaterally, clear to auscultation and percussion. No rales, rhonchi or wheezes noted. No increased work of breathing, no retractions or nasal flaring. Abdomen/GI: Soft, non-tender, with normal bowel sounds. No distension or tympany. No guarding or rebound. No evidence of tenderness throughout. Back: No spinal tenderness. No costovertebral tenderness. Full range of motion. Skin: Warm, dry with normal turgor. Normal color with no rashes, no lesions, and no evidence of cellulitis. MS/ Extremity: Pulses equal, no cyanosis. Neurovascular intact. Full, normal range of motion., bilateral aka Neuro: Awake and alert, GCS 15, oriented to person, place, time, and situation. Cranial nerves II-XII grossly intact. Motor strength 5/5 in all extremities. Sensory grossly intact. Cerebellar exam normal. Normal gait. Psych: Awake, alert, with orientation to person, place and time. Behavior, mood, and affect are within normal limits. 11:54 ECG was reviewed by the Attending Physician. Vital Signs: 10:40 BP 118 / 90; Pulse 105; Resp 17; Temp 97.5; Pulse Ox 98% ; Weight 95.25 kg; Height 5 jl7 ft. 7 in. ; Pain 7/10; 13:38 BP 136 / 87; Pulse 94; Resp 16; Pulse Ox 98% on R/A; Pain 0/10; iw 10:40 Body Mass Index 32.89 (95.25 kg, 170.18 cm) jl7 10:40 Pain Scale: Adult jl7 13:38 Pain Scale: Adult iw MDM: 09:47 Medical Screening Exam initiated freddy 11:59 Differential diagnosis: cardiac arrhythmia, generalized weakness, GI bleed, freddy hypovolemia, idiopathic dizziness, near-syncope, vertigo. Data reviewed: vital signs, nurses notes, lab test result(s), EKG, radiologic studies, ultrasound. Consideration of Admission/Observation Escalation of care including admission/observation considered. I considered the following discharge prescriptions or medication management in the emergency department Medications were administered in the Emergency Department. See MAR. Independent interpretation of the following test(s) in the Emergency Department EKG: See my EKG interpretation above. Test considered but Not performed: CT: NO CT HEAD. Historians other than the Patient: Spouse/Significant Other: WELL INFORMED. Care significantly affected by the following chronic conditions: ADD, ANXIETY, DEPRESSION, ANEMIA, GASTRIC BYPASS. 11/10 09:48 Order name: CBC with Diff 11/10 09:48 Order name: Comprehensive Metabolic Panel; Complete Time: 11:45 11/10 09:48 Order name: PT-INR; Complete Time: 11:41 11/10 09:48 Order name: Test, Serum 11/10 09:48 Order name: Troponin High Sensitivity; Complete Time: 11:45 11/10 09:48 Order name: Type And Screen 11/10 11:34 Order name: CBC Smear Scan EDDC 11/10 11:40 Order name: Iron Level 11/10 11:40 Order name: TIBC 11/10 11:40 Order name: B12 [facility] 11/10 11:40 Order name: Retic Count [facility] 11/10 11:42 Order name: Transvaginal Study (Probe) [facility] 11/10 09:48 Order name: EKG - Nurse/Tech; Complete Time: 12:01 [facility] EC:54 Rate is 91 beats/min. Rhythm is regular. QRS Willard is Normal. CA interval is normal. QRS freddy interval is normal. QT interval is normal. No Q waves. T waves are Normal. No ST changes noted. Clinical impression: Normal ECG, Abnormal EKG without significant change, and No evidence of ischemia. Interpreted by me. Reviewed by me. Administered Medications: 11:24 Drug: NS 0.9% IV 1000 ml IV at 1000 ml once; to be given as a bolus over 60 minutes aa5 Route: IV; Rate: 1000 ml; Site: right antecubital; 13:40 Follow up: IV Status: Completed infusion iw 12:12 Drug: Ativan IVP 1 mg IVP once Route: IVP; Site: right antecubital; aa5 13:40 Follow up: Response: No adverse reaction iw Disposition Summary: 11/10/24 12:03 Discharge Ordered Notes: Location: Home freddy Problem: new freddy Symptoms: have improved freddy Condition: Stable freddy Diagnosis - Iron deficiency anemia secondary to blood loss (chronic) freddy - Iron deficiency anemia, unspecified freddy - Dizziness and giddiness freddy Followup: freddy - With: Private Physician - When: 2 - 3 days - Reason: Recheck today's complaints, Continuance of care, Re-evaluation by your physician Followup: freddy - With: Dawna Prado MD - When: 2 - 3 days - Reason: Recheck today's complaints, Re-evaluation by your physician Discharge Instructions: - Discharge Summary Sheet freddy - Iron Deficiency Anemia, Adult freddy - Anemia freddy - Iron-Rich Diet freddy - Dizziness freddy - Iron Deficiency Anemia, Adult, [id number] freddy Forms: - Medication Reconciliation Form freddy - Antibiotic Education freddy - Prescription Opioid Use freddy - Patient Portal Instructions freddy - Leadership Thank You Letter freddy - Work release form eb Prescriptions: - Ferrous Sulfate 325 mg (65 mg Iron) Oral Tablet - take 1 tablet ORAL route every 8 hours; 90 tablet; Refills: 0, Product freddy Selection Permitted Signatures: Dispatcher [employer] Yunior Ann MD MD cha Calderon, Audri RN RN aa5 Silvia Li RN RN jl7 Christina Rao RN iw Corrections: (The following items were deleted from the chart) 09:48 09:48 CBC+H.LAB.BRZ ordered. EDMS EDMS 09:48 09:48 COMPREHENSIVE METABOLIC PANEL+C.LAB.BRZ ordered. EDMS EDMS 09:48 09:48 Urinalysis+U.LAB.BRZ ordered. EDMS EDMS 09:48 09:48 PROTIME (+INR)+COAG.LAB.BRZ ordered. EDMS EDMS 09:48 09:48 TEST, SERUM+SC.LAB.BRZ ordered. EDMS EDMS 09:48 09:48 Troponin High Sensitivity+C.LAB.BRZ ordered. EDMS EDMS 09:48 09:48 TYPE AND SCREEN+BB.LAB.BRZ ordered. EDMS EDMS 11:41 11:41 FERRITIN+C.LAB.BRZ ordered. EDMS EDMS 11:41 11:41 TRANSFERRIN SAT/IRON BINDING+C.LAB.BRZ ordered. EDMS EDMS 11:41 11:41 VITAMIN B12+C.LAB.BRZ ordered. EDMS EDMS 11:41 11:41 RETIC COUNT+H.LAB.BRZ ordered. EDMS EDMS 11:41 11:41 FERRITIN+C.LAB.BRZ ordered. EDMS EDMS
[2024-11-10] MEDS ORDERED: LORazepam 2 MG/ML VIAL ONE (12:04)
[2024-11-10 12:22] LABS: Ferritin 5.7 ng/mL (8-252)
[2024-11-10 12:33] LABS: White Blood Cell Scan OK (OK)
[2024-11-10 12:34] LABS: Anisocytosis 2+; Blood Morphology Comment NOTED (NOT SEEN); Hypochromasia 2+; Microcytosis 1+; Platelet Estimate INCR
--- NOTE | 2024-11-10 13:01 | RAD REPORT ---
EXAMINATION: US PELVIS TRANSVAGINAL WITH DOPPLER CLINICAL INDICATION: Female 39 years old. VAGINAL BLEEDING TECHNIQUE: Real-time ultrasonography of the pelvis was performed transvaginally. Color and spectral D oppler evaluation of the ovaries was performed. COMPARISON: No prior exam. FINDINGS: UTERUS AND CERVIX: The uterus measures 9.2 x 5.8 x 4.8 cm (cervix to fundus x AP x transverse). The u terus is normal. No masses seen The endometrium is normal, 4 mm in thickness. RIGHT OVARY: Normal. The right ovary measures 3.2 x 1.9 x 1.8 cm. Normal color and spectral Doppler evaluation of the right ovary.. LEFT OVARY: Normal. The left ovary measures 2.9 x 2.1 x 1.9 cm. Normal color and spectral Doppler evaluation of the left ovary.. FREE FLUID: No free fluid. ADDITIONAL FINDINGS: IMPRESSION: Unremarkable exmaination.
[2024-11-10 14:09] VITALS: TEMP 97.5; O2SAT 98
[2024-11-10 14:11] VITALS: BP 136/87
--- NOTE | 2024-11-13 12:13 | EKG ---
Test Date: 2024-11-10 Test Time: 11:55:08 Tax Credit Leasing Consultant: BRI MEASUREMENT RESULTS: Intervals: Rate: 91 MO: 112 QRSD: 80 QT: 334 QTc: 410 [place]: P: 49 MO: 112 QRS: 80 T: 67 INTERPRETIVE STATEMENTS: Normal sinus rhythm with sinus arrhythmia Normal ECG Compared to ECG 10/23/2024 19:24:36 No significant changes Electronically Signed On 11-13-24 12:06:03 PRIMARY EDUCATION PROFESSOR by Avel Salcedo
== END 2024-11-10 13:39 | disposition home or self-care (01) ==
LOC: ER 09:38
DX: D50.0 Iron deficiency anemia secondary to blood loss (chronic) (principal)
CPT/HCPCS: 36415; 76830; 80053; 82607; 82728; 83540; 84466; 84484; 84703; 85025; 85044; 85610; 86850; 86900; 86901; 93005; 96361; 96374; 99284; J7030

== ENCOUNTER 2024-12-04 12:56 | Emergency (ER) | payer BC ==
[2024-12-04] MEDS ORDERED: LIDOCAINE 1% 20 ML MDV ONE (13:28)
--- NOTE | 2024-12-04 13:45 | EDPHYS ---
Physician Documentation [facility] Name: Karissa Llanos Age: 39 yrs Sex: Female : 1985 Arrival Date: 12/04/2024 Time: 12:56 Bed 12 Private MD: ED Physician Al Leiva HPI: 12/04 15:09 This 39 yrs old Female presents to ER via Ambulatory with complaints of dr5 Finger Injury, Nose Problem. 15:09 Patient is a 39-year-old female with history of depression, anxiety, anemia coming in dr5 with infection to left fifth digit that started this morning. Patient reports that she is not working outside and might have cut her finger. Patient reports pain is described as throbbing. Patient also reports that she has dry left nare with possible scab inside.. 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 - Infectious Disease History:: Denies. - Social history:: Smoking status: Reported history of juuling and/or vaping. ROS: 15:09 Constitutional: as per hpi dr5 Exam: 15:09 Constitutional: This is a well developed, well nourished patient who is awake, alert, dr5 and in no acute distress. Head/Face: Normocephalic, atraumatic. Neck: Trachea midline, no thyromegaly or masses palpated, and no cervical lymphadenopathy. Supple, full range of motion without nuchal rigidity, or vertebral point tenderness. No Meningismus. Chest/axilla: Normal chest wall appearance and motion. Nontender with no deformity. No lesions are appreciated. Cardiovascular: Regular rate and rhythm with a normal S1 and S2. Normal PMI, no JVD. No pulse deficits. 15:09 ENT: Nose: External nose: abrasion is noted, swelling is noted, Examination of the other nostril shows no obvious abnormality, 15:09 Skin: cellulitis, that is minimal, on the dorsal aspect of distal phalanx of left little finger, 15:09 Back: No spinal tenderness. No costovertebral tenderness. Full range of motion. dr5 Skin: Warm, dry with normal turgor. Normal color with no rashes, no lesions, and no evidence of cellulitis. Neuro: Awake and alert, GCS 15, oriented to person, place, time, and situation. Cranial nerves II-XII grossly intact. Motor strength 5/5 in all extremities. Sensory grossly intact. Cerebellar exam normal. Normal gait. Vital Signs: 13:20 BP 128 / 76; Pulse 83; Resp 16 S; Pulse Ox 100% on R/A; Weight 99.79 kg (R); Height 5 kc6 ft. 7 in. (R); 13:20 Body Mass Index 34.46 (99.79 kg, 170.18 cm) kc6 MDM: 13:06 Medical Screening Exam initiated dr5 15:09 Differential diagnosis: Paronychia, cellulitis, felon. Data reviewed: vital signs, dr5 nurses notes. Care significantly affected by the following chronic conditions: Depression, Anxiety, Anemia. Care significantly affected by the following Social Determinants of Health: Poor access to healthcare and/or lack of insurance, Poor access to transportation, Problems related to employment. Counseling: I had a detailed discussion with the patient and/or guardian regarding the historical points, exam findings, and any diagnostic results supporting the discharge/admit diagnosis, the presence of at least one elevated blood pressure reading (>120/80) during this emergency department visit, the need for outpatient follow up, for definitive care, a family practitioner, to return to the emergency department if symptoms worsen or persist or if there are any questions or concerns that arise at home. ED course: Patient does not want to have paronychia drained. Will give patient Keflex to cover for infection of finger and have patient return if swelling, pain, redness worsens to have paronychia drained. Patient verbalized understanding and understands risks versus benefit of not having paronychia drained in ER today. She states that she will return if she feels like it is getting worse. All questions answered. Return to ER at anytime for any worsening symptoms was discussed with patient.. 12/04 13:21 Order name: Incision \T\ Drainage Setup; Complete Time: 13:23 aa5 Administered Medications: 13:51 Not Given (Patient Refused): lidocaine(1 %) 20 ml 20 ml Infiltration once; to bedside kc6 Disposition Summary: 12/04/24 13:45 Discharge Ordered Notes: Location: Home dr5 Condition: Stable dr5 Diagnosis - Cellulitis of finger dr5 Followup: dr5 - With: Emergency Department - When: As needed - Reason: Worsening of condition Followup: dr5 - With: Private Physician - When: 1 - 2 days - Reason: Recheck today's complaints, Continuance of care, Re-evaluation by your physician Discharge Instructions: - Discharge Summary Sheet dr5 - Paronychia, [id number] dr5 Forms: - Work release form dr5 - Medication Reconciliation Form dr5 - Antibiotic Education dr5 - Patient Portal Instructions dr5 - Leadership Thank You Letter dr5 Prescriptions: - Cephalexin 500 mg Oral Capsule - take 1 capsule ORAL route every 12 hours for 10 days; 20 capsule; Refills: 0, dr5 Product Selection Permitted Addendum: 12/06/2024 14:43 I was immediately available for consultation during this patient's visit. I did not e c2 personally see the patient or discuss the patient with the TIN. . Signatures: Selene Sanz RN RN aa5 Jessica Osorio RN RN kc6 Al Leiva MD MD ec2 Deshawn Castro, TURF GROWER-C TURF GROWER-Cdr5
--- NOTE | 2024-12-04 13:45 | ER ---
Nurse's Notes [facility] Name: Karissa Llanos Age: 39 yrs Sex: Female : 1985 Arrival Date: 12/04/2024 Time: 12:56 Bed 12 Private MD: Diagnosis: Cellulitis of finger Presentation: 12/04 13:20 Chief complaint: Patient states: swelling to the right fifth digit. Coronavirus screen: kc6 At this time, the client does not indicate any symptoms associated with coronavirus-19. Ebola Screen: No symptoms or risks identified at this time. Initial Sepsis Screen: Does the patient meet any 2 criteria? No. Patient's initial sepsis screen is negative. Does the patient have a suspected source of infection? No. Patient's initial sepsis screen is negative. Risk Assessment: Do you want to hurt yourself or someone else? Patient reports no desire to harm self or others. Onset of symptoms was December 04, 2024. 13:20 Method Of Arrival: Ambulatory [facility] 13:20 Acuity: SERENITY 4 kc6 SENIOR CLINICAL DATA COORDINATOR: 13:22 LMP 12/04/2024, unknown kc6 Historical: - Allergies: 13:22 Morphine; kc6 - PMHx: 13:22 Depression; Anxiety; Anemia; ADD; kc6 - PSHx: 13:22 Cholecystectomy; Gastric Bypass; Tonsillectomy; kc6 - Immunization history:: Adult Immunizations up to date. - Infectious Disease History:: Denies. - Social history:: Smoking status: Reported history of juuling and/or vaping. Screenin:23 [facility] ED Fall Risk Assessment (Adult) History of falling in the last 3 months, kc6 including since admission No falls in past 3 months (0 pts) Confusion or Disorientation No (0 pts) Intoxicated or Sedated No (0 pts) Impaired Gait No (0 pts) Mobility Assist Device Used No (0 pt) Altered Elimination No (0 pt) Score/Fall Risk Level 0 - 2 = Low Risk Oriented to surroundings, Maintained a safe environment. Abuse screen: Denies threats or abuse. Denies injuries from another. Nutritional screening: No deficits noted. Tuberculosis screening: No symptoms or risk factors identified. Assessment: 13:38 General: Appears in no apparent distress. comfortable, well groomed, well developed, kc6 Behavior is cooperative, appropriate for age, anxious. Pain: Complains of pain in right little fingernail Quality of pain is described as sharp, throbbing. Neuro: Level of Consciousness is awake, alert, obeys commands, Oriented to person, place, time, situation, Appropriate for age. Respiratory: Airway is patent Trachea midline Respiratory effort is even, unlabored, Respiratory pattern is regular, symmetrical. Derm: Skin is intact, is healthy with good turgor, Skin is pink, warm \T\ dry. Abscess located on right little fingernail is dime sized, has no drainage, is red, is raised. Musculoskeletal: Circulation, motion, and sensation intact. Range of motion: intact in all extremities. 13:59 Reassessment: pt refusing I\T\D at this time, requesting to be d/c. kc6 Vital Signs: 13:20 BP 128 / 76; Pulse 83; Resp 16 S; Pulse Ox 100% on R/A; Weight 99.79 kg (R); Height 5 kc6 ft. 7 in. (R); 13:20 Body Mass Index 34.46 (99.79 kg, 170.18 cm) kc6 ED Course: 13:02 Patient arrived in ED. cj3 13:06 Deshawn Castro FNP-C [facility]. dr5 13:06 Al Leiva MD is Attending Physician. dr5 13:20 Jessica Osorio, AD is Primary Nurse. kc6 13:22 Triage completed. kc6 13:22 Arm band placed on. kc6 13:22 Patient has correct armband on for positive identification. Bed in low position. Call kc6 light in reach. Side rails up X 1. Pulse ox on. NIBP on. Door closed. Noise minimized. Lights dimmed. Pillow given. Verbal reassurance given. 13:23 Patient maintains SpO2 saturation greater than 95% on room air. kc6 14:00 No provider procedures requiring assistance completed. Patient did not have IV access kc6 during this emergency room visit. Administered Medications: 13:51 Not Given (Patient Refused): lidocaine(1 %) 20 ml 20 ml Infiltration once; to bedside kc6 Medication: 14:00 VIS not applicable for this client. kc6 Outcome: 13:45 Discharge ordered by . dr5 14:00 Discharged to home ambulatory, kc6 14:00 Condition: good 14:00 Discharge instructions given to patient, Instructed on discharge instructions, follow up and referral plans. medication usage, wound care, Demonstrated understanding of instructions, follow-up care, medications, wound care, Prescriptions given X 1, 14:00 Patient left the ED. kc6 Signatures: Jessica Osorio RN RN kc6 Deshawn Castro, HAIRSPRING ADJUSTER-C HAIRSPRING ADJUSTER-Cdr5 Leslye Moy cj3
[2024-12-04 14:06] VITALS: BP 128/76; O2SAT 100
== END 2024-12-04 14:00 | disposition home or self-care (01) ==
LOC: ER 12:56
DX: L03.012 Cellulitis of left finger (principal)
CPT/HCPCS: 99283; J2003

== ENCOUNTER 2025-01-17 11:51 | Emergency (ER) | payer BC ==
[2025-01-17 12:54] LABS: Specific Gravity 1.025 (1.005-1.030); Sqamous Epithelial <5 /HPF (None Seen); Urine Bacteria <20 /HPF (<20); Urine Bilirubin NEGATIVE (Negative); Urine Blood Negative (Negative); Urine Clarity Turbid (Clear); Urine Color Light-Yellow (Yellow); Urine Culture Reflex Order REFLEXED; Urine Glucose NEGATIVE (Negative); Urine Ketones NEGATIVE (Negative); Urine Microscopic Reflex YN ORDER UMIC; Urine Mucus Slight /HPF (None Seen); Urine Nitrite NEGATIVE (Negative); Urine Protein NEGATIVE (Negative); Urine RBC <5 /HPF (None Seen); Urine Urobilinogen 1+ (Normal); Urine pH 6.5 (5.0-7.0)
[2025-01-17 12:56] LABS: Specific Gravity 1.025 (1.005-1.030)
--- NOTE | 2025-01-17 13:27 | RAD REPORT ---
EXAM: CT Head Brain Wo Cont HISTORY: DIZZINESS COMPARISON: 09/13/2023 TECHNIQUE: Multiple contiguous axial images were obtained for a CT of the brain without contrast. Sag ittal and coronal reformats were performed. One or more of the following dose reduction techniques were used: Automated exposure control, adjus tment of the mA and kV according to patient size, and iterative reconstruction. Unless otherwise specified, incidental findings do not require dedicated imaging follow-up. FINDINGS: No evidence of hydrocephalus, intracranial hemorrhage, or extra-axial fluid collection. The brain is normal in morphology. The calvarium is intact. The visualized paranasal sinuses and mastoid air cells are essentially clear . IMPRESSION: No evidence of acute intracranial abnormality.
[2025-01-17] MEDS ORDERED: ONDANSETRON 4 MG/2 ML VIAL ONE (13:30)
[2025-01-17] MEDS ORDERED: MECLIZINE HCL 12.5 MG TAB ONE (13:31)
[2025-01-17] MEDS ORDERED: NA CHLORIDE 0.9% 1,000 ML ONE (13:31)
[2025-01-17 13:38] LABS: Absolute Eosinophils 0.3 K/uL (0-0.5); Absolute Lymphocytes (CBC) 2.4 K/uL (0.7-4.9); Absolute Monocytes 0.3 K/uL (0.1-1.3); Absolute Neutrophil 5.7 K/uL (1.8-8.0); Basophils % 0.5 % (0-1.3); Eosinophils % 3.4 % (0-4.4); Hematocrit 30.8 % (36.0-45.0); Hemoglobin 9.5 g/dL (12.0-15.0); Lymphocytes % 27.6 % (15.3-44.8); MCH 20.6 pg (27.0-35.0); MCHC 30.7 g/dL (32.0-36.0); MCV 67.3 fL (80-100); MPV 8.2 fL (7.6-11.3); Monocytes % 3.3 % (3.3-12.3); Neutrophils % 65.2 % (41.7-73.7); Platelets 326 thou/uL (152-406); RBC Red Blood Cell Count 4.58 M/uL (3.86-4.86); Red Cell Distribution Width 17.9 % (12.1-15.2)
[2025-01-17 13:59] LABS: ALT/SGPT 19 U/L (13-56); AST/SGOT 15 U/L (15-37); Albumin 3.5 g/dL (3.4-5.0); Albumin/Globulin Ratio 0.9 (1.1-1.8); Alkaline Phosphatase 109 U/L (45-117); Anion Gap 8.7 mEq/L (5.0-15.0); BUN Blood Urea Nitrogen 15 mg/dL (7-18); Bicarbonate 24 mEq/L (21-32); Bilirubin Total 0.3 mg/dL (0.2-1.0); Globulin 4.1 g/dL (2.3-3.5); Glomerular Filtration Rate 86 ml/min (=/>90); Glucose Level 170 mg/dL (74-106); Potassium 4.7 mEq/L (3.5-5.1); Protein, Total 7.6 g/dL (6.4-8.2); Sodium Level 135 mEq/L (136-145)
[2025-01-17 14:00] LABS: Troponin High Sensitivity < 3.0 pg/mL (<58.9)
--- NOTE | 2025-01-17 15:02 | EDPHYS ---
Physician Documentation [facility] Name: Karissa Llanos Age: 39 yrs Sex: Female : 1985 Arrival Date: 01/17/2025 Time: 11:51 Bed 15 Private MD: ED Physician Yunior Lopez HPI: 01/17 14:51 This 39 yrs old Female presents to ER via Ambulatory with complaints of freddy Dizziness. 14:51 The patient presents with dizziness, generalized weakness. Onset: The symptoms/episode freddy began/occurred 2 day(s) ago. Context: occurred at an unknown location. Modifying factors: The symptoms are alleviated by nothing, the symptoms are aggravated by standing up, changing position. Associated signs and symptoms: Pertinent positives: nausea, weakness , dizzy. Severity of symptoms: At their worst the symptoms were mild in the emergency department the symptoms are unchanged. Patient's baseline: Neuro: alert and fully oriented, Motor: no deficits. The patient has not experienced similar symptoms in the past. 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 - Infectious Disease History:: Denies. - Social history:: Smoking status: Reported history of juuling and/or vaping. ROS: 15:00 Constitutional: Negative for fever, chills, and weight loss, Eyes: Negative for injury, freddy pain, redness, and discharge, ENT: Negative for injury, pain, and discharge, Neck: Negative for injury, pain, and swelling, Cardiovascular: Negative for chest pain, palpitations, and edema, Respiratory: Negative for shortness of breath, cough, wheezing, and pleuritic chest pain, Abdomen/GI: Negative for abdominal pain, nausea, vomiting, diarrhea, and constipation, Back: Negative for injury and pain, : Negative for injury, bleeding, discharge, and swelling, MS/Extremity: Negative for injury and deformity, Skin: Negative for injury, rash, and discoloration, Psych: Negative for depression, anxiety, suicide ideation, homicidal ideation, and hallucinations, Allergy/Immunology: Negative for hives, rash, and allergies, Endocrine: Negative for neck swelling, polydipsia, polyuria, polyphagia, and marked weight changes, Hematologic/Lymphatic: Negative for swollen nodes, abnormal bleeding, and unusual bruising, 15:00 Neuro: Positive for dizziness, weakness, Exam: 15:00 Constitutional: This is a well developed, well nourished patient who is awake, alert, freddy and in no acute distress. Head/Face: Normocephalic, atraumatic. Eyes: Pupils equal round and reactive to light, extra-ocular motions intact. Lids and lashes normal. Conjunctiva and sclera are non-icteric and not injected. Cornea within normal limits. Periorbital areas with no swelling, redness, or edema. ENT: Nares patent. No nasal discharge, no septal abnormalities noted. Tympanic membranes are normal and external auditory canals are clear. Oropharynx with no redness, swelling, or masses, exudates, or evidence of obstruction, uvula midline. Mucous membranes moist. Neck: Trachea midline, no thyromegaly or masses palpated, and no cervical lymphadenopathy. Supple, full range of motion without nuchal rigidity, or vertebral point tenderness. No Meningismus. Chest/axilla: Normal chest wall appearance and motion. Nontender with no deformity. No lesions are appreciated. Cardiovascular: Regular rate and rhythm with a normal S1 and S2. No gallops, murmurs, or rubs. Normal PMI, no JVD. No pulse deficits. Respiratory: Lungs have equal breath sounds bilaterally, clear to auscultation and percussion. No rales, rhonchi or wheezes noted. No increased work of breathing, no retractions or nasal flaring. Abdomen/GI: Soft, non-tender, with normal bowel sounds. No distension or tympany. No guarding or rebound. No evidence of tenderness throughout. Back: No spinal tenderness. No costovertebral tenderness. Full range of motion. Skin: Warm, dry with normal turgor. Normal color with no rashes, no lesions, and no evidence of cellulitis. MS/ Extremity: Pulses equal, no cyanosis. Neurovascular intact. Full, normal range of motion., bilateral aka Neuro: Awake and alert, GCS 15, oriented to person, place, time, and situation. Cranial nerves II-XII grossly intact. Motor strength 5/5 in all extremities. Sensory grossly intact. Cerebellar exam normal. Normal gait. Psych: Awake, alert, with orientation to person, place and time. Behavior, mood, and affect are within normal limits. 15:00 ECG was reviewed by the Attending Physician. Vital Signs: 12:15 BP 124 / 78; Pulse 101; Resp 17; Temp 97.7; Pulse Ox 100% ; Weight 99.79 kg; Height 5 me1 ft. 7 in. ; Pain 0/10; 12:15 Body Mass Index 34.46 (99.79 kg, 170.18 cm) me1 12:15 Pain Scale: Adult me1 NIH Stroke Scale Scores: 15:00 NIHSS Score: 0 freddy [place] Coma Score: 14:27 Eye Response: spontaneous(4). Motor Response: obeys commands(6). Verbal Response: dd2 oriented(5). Total: 15. MDM: 11:58 Medical Screening Exam initiated freddy 12:29 Medical Screening Exam initiated freddy 15:12 Differential Diagnosis altered mental status, sepsis, flu. Differential diagnosis: [facility] cardiac arrhythmia, CVA, generalized weakness, GI bleed, hypovolemia, idiopathic dizziness, near-syncope, , sepsis, TIA. Data reviewed: vital signs, nurses notes, lab test result(s), EKG, radiologic studies, CT scan. Consideration of Admission/Observation Escalation of care including admission/observation considered. I considered the following discharge prescriptions or medication management in the emergency department Medications were administered in the Emergency Department. See MAR. Independent interpretation of the following test(s) in the Emergency Department EKG: See my EKG interpretation above. Test considered but Not performed: MRI: mri. Historians other than the Patient: pt well informed. Care significantly affected by the following chronic conditions: Obesity, anxiety, depression, add, anemia. 01/17 12:01 Order name: CBC with Diff [facility] 01/17 12: Order name: CMP; Complete Time: 14:44 [facility] 01/17 12:01 Order name: Troponin High Sensitivity; Complete Time: 14:44 [facility] 01/17 12:01 Order name: UA Rfx Sebastian Cult if indicated; Complete Time: 14:44 [facility] 01/17 12:01 Order name: PREGU; Complete Time: 14:44 [facility] 01/17 13:08 Order name: Urine Culture [facility] 01/17 12:01 Order name: CT Head Brain wo Cont; Complete Time: 14:44 [facility] 01/17 12:01 Order name: EKG; Complete Time: 12:01 [facility] 01/17 12:01 Order name: EKG - Nurse/Tech; Complete Time: 14:27 [facility] EC:00 Rate is 81 beats/min. QRS [place] is Normal. MD interval is normal. QRS interval is freddy normal. QT interval is normal. No Q waves. T waves are Normal. No ST changes noted. Clinical impression: Normal ECG and No evidence of ischemia. Interpreted by me. Reviewed by me. Administered Medications: 13:30 Drug: NS 0.9% IV 1000 ml IV at 1000 ml once; to be given as a bolus over 60 minutes db Route: IV; Rate: 1000 ml; Site: right antecubital; 14:35 Follow up: IV Status: Completed infusion dd2 13:30 Drug: Ondansetron IVP 4 mg IVP once; over 2 minutes Route: IVP; Site: right antecubital;db 13:45 Follow up: Response: No adverse reaction dd2 13:30 Drug: Meclizine PO 50 mg PO once Route: PO; db 14:00 Follow up: Response: No adverse reaction dd2 15:26 Drug: Rocephin IV 1 grams IV at per protocol once; Given slow IV push per pharmacy dd2 instructions Route: IV; Rate: per protocol; Site: right antecubital; 15:43 Follow up: IV Status: Completed infusion dd2 Disposition Summary: 01/17/25 15:01 Discharge Ordered Notes: Location: Home freddy Problem: new freddy Symptoms: have improved freddy Condition: Stable freddy Diagnosis - Dizziness and giddiness freddy - Weakness freddy - UTI/ Urinary tract infection, site not specified freddy Followup: freddy - With: Private Physician - When: 2 - 3 days - Reason: Recheck today's complaints, Continuance of care, Re-evaluation by your physician Discharge Instructions: - Discharge Summary Sheet freddy - Dizziness freddy - Urinary Tract Infection, Adult freddy - Weakness freddy - Urinary Tract Infection, Adult, [id number] freddy - Weakness, Emew-rl-[id number] freddy - Aspirin and Your Heart freddy - Dizziness, [id number] freddy - Deconditioning freddy Forms: - Medication Reconciliation Form freddy - Antibiotic Education freddy - Prescription Opioid Use freddy - Patient Portal Instructions freddy - Leadership Thank You Letter freddy - Work release form dd2 Prescriptions: - ondansetron 4 mg Oral Tablet,disintegrating - take 1 tablet ORAL route every 8 hours prn; 20 tablet; Refills: 0, Product [facility] Selection Permitted - Cipro 250 mg Oral tablet - take 1 tablet ORAL route every 12 hours; 14 tablet; Refills: 0, Product freddy Selection Permitted - Meclizine 25 mg Oral Tablet - take 1 tablet ORAL route every 8 hours As needed; 30 tablet; Refills: 0, freddy Product Selection Permitted NIH Stroke Scale - NIH Stroke Score Date: 01/17/2025 Time: 15:00 Total Score = 0 10. Dysarthria (speech clarity - read or repeat words) - 0(Normal) 11. Extinction and Inattention (visual/tactile/auditory/spatial/personal) - 0(No abnormality) 1a. Level of Consciousness (LOC) - 0(Alert) 1b. Level of Consciousness (LOC) (Month \T\ Age) - 0(Both) 1c. LOC Commands (Open \T\ Closes Eyes/Security Director) - 0(Both) 2. Best Gaze (Lateral Gaze Paresis) - 0(Normal) 3. Visual Field Loss - 0(No visual loss) 4. Facial Palsy - 0(Normal) 5a. Left Arm: Motor (10-second hold) - 0(No drift) 5b. Right Arm: Motor (10-second hold) - 0(No drift) 6a. Left Leg: Motor (5-second hold - always test supine) - 0(No drift) 6b. Right Leg: Motor (5-second hold - always test supine) - 0(No drift) 7. Limb Ataxia (finger/nose \T\ heel/marcum - test with eyes open) - 0(Absent) 8. Sensory Loss (pinprick arms/legs/face) - 0(Normal) 9. Best Language: Aphasia (description/naming/reading) - 0(No aphasia) Initials: [facility] Signatures: Dispatcher [employer] Yunior Ann MD MD cha Benton, Danielle, RN RN db Eddleman, Michelle, RN RN me1 BESSIE GALLEGOS RN RN dd2
--- NOTE | 2025-01-17 15:02 | ER ---
Nurse's Notes [facility] Name: Karissa Llanos Age: 39 yrs Sex: Female : 1985 Arrival Date: 01/17/2025 Time: 11:51 Bed 15 Private MD: Diagnosis: Dizziness and giddiness;Weakness;UTI/ Urinary tract infection, site not specified Presentation: 01/17 12:15 Chief complaint: Patient states: c/o dizziness, SOB w/exertion and fatigue x 4 days. me1 Has hx of low hgb and 2 blood transfusions in the past. Coronavirus screen: Vaccine status: Patient reports receiving the 2nd dose of the covid vaccine. Ebola Screen: No symptoms or risks identified at this time. Initial Sepsis Screen: Does the patient meet any 2 criteria? HR > 90 bpm. No. Patient's initial sepsis screen is negative. Does the patient have a suspected source of infection? No. Patient's initial sepsis screen is negative. Risk Assessment: Do you want to hurt yourself or someone else? Patient reports no desire to harm self or others. Onset of symptoms was January 14, 2025. 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 - Infectious Disease History:: Denies. - Social history:: Smoking status: Reported history of juuling and/or vaping. Screenin:27 [facility] ED Fall Risk Assessment (Adult) History of falling in the last 3 months, dd2 including since admission No falls in past 3 months (0 pts) Confusion or Disorientation No (0 pts) Intoxicated or Sedated No (0 pts) Impaired Gait No (0 pts) Mobility Assist Device Used No (0 pt) Altered Elimination No (0 pt) Score/Fall Risk Level 0 - 2 = Low Risk Oriented to surroundings, Maintained a safe environment, Educated pt \T\ family on fall prevention, incl call for assistance when getting out of bed, Assessed \T\ reinforced patient's understanding of fall precautions, Hourly rounding (assess needs \T\ fall precautionary measures) done. Abuse screen: Denies threats or abuse. Denies injuries from another. Nutritional screening: No deficits noted. Tuberculosis screening: No symptoms or risk factors identified. Assessment: 12:06 Reassessment: Called in lobby with no answer. me1 13:52 General: Appears in no apparent distress. Behavior is calm, cooperative, appropriate dd2 for age. Pain: Denies pain. Neuro: Level of Consciousness is awake, alert, obeys commands, Oriented to person, place, time, situation, Appropriate for age Reports dizziness. Cardiovascular: No deficits noted. Denies chest pain, Patient's skin is warm and dry. Respiratory: Airway is patent Respiratory effort is even, unlabored, Respiratory pattern is regular, symmetrical. GI: Abdomen is non-distended, Abd is soft and non tender X 4 quads. Reports nausea. : No signs and/or symptoms were reported regarding the genitourinary system. EENT: No deficits noted. No signs and/or symptoms were reported regarding the EENT system. Derm: No deficits noted. No signs and/or symptoms reported regarding the dermatologic system. Musculoskeletal: Circulation, motion, and sensation intact. Range of motion: intact in all extremities. Vital Signs: 12:15 BP 124 / 78; Pulse 101; Resp 17; Temp 97.7; Pulse Ox 100% ; Weight 99.79 kg; Height 5 me1 ft. 7 in. ; Pain 0/10; 12:15 Body Mass Index 34.46 (99.79 kg, 170.18 cm) me1 12:15 Pain Scale: Adult me1 [place] Coma Score: 14:27 Eye Response: spontaneous(4). Motor Response: obeys commands(6). Verbal Response: dd2 oriented(5). Total: 15. NIH Stroke Scale Scores: 15:00 NIHSS Score: 0 freddy ED Course: 11:55 Patient arrived in ED. gl 11:58 Yunior Lopez MD is Attending Physician. [facility] 12:11 CT Head Brain wo Cont In Process Unspecified. EDMS 12:17 Triage completed. me1 12:17 Arm band placed on Patient placed in waiting room. me1 12:38 Urine collected: clean catch specimen, clear. me1 13:25 Initial lab(s) drawn, by me, sent to lab. Inserted saline lock: 20 gauge in right db antecubital area, using aseptic technique. Blood collected. Flushed with 10 mL NS. 13:28 BESSIE GALLEGOS, RN is Primary Nurse. dd2 14:27 Patient has correct armband on for positive identification. Bed in low position. Call dd2 light in reach. Side rails up X2. Client placed on continuous cardiac and pulse oximetry monitoring. NIBP monitoring applied. Door closed. Noise minimized. Warm blanket given. Pillow given. Verbal reassurance given. 14:27 No provider procedures requiring assistance completed. EKG done, by ED staff, reviewed dd2 by Yunior Lopez MD. 14:27 Patient maintains SpO2 saturation greater than 95% on room air. dd2 15:40 Provided Education on: d/c, medication education. dd2 15:40 IV discontinued, intact, bleeding controlled, No redness/swelling at site. Pressure dd2 dressing applied. Administered Medications: 13:30 Drug: NS 0.9% IV 1000 ml IV at 1000 ml once; to be given as a bolus over 60 minutes db Route: IV; Rate: 1000 ml; Site: right antecubital; 14:35 Follow up: IV Status: Completed infusion dd2 13:30 Drug: Ondansetron IVP 4 mg IVP once; over 2 minutes Route: IVP; Site: right antecubital;db 13:45 Follow up: Response: No adverse reaction dd2 13:30 Drug: Meclizine PO 50 mg PO once Route: PO; db 14:00 Follow up: Response: No adverse reaction dd2 15:26 Drug: Rocephin IV 1 grams IV at per protocol once; Given slow IV push per pharmacy dd2 instructions Route: IV; Rate: per protocol; Site: right antecubital; 15:43 Follow up: IV Status: Completed infusion dd2 Medication: 14:27 VIS not applicable for this client. dd2 Outcome: 15:01 Discharge ordered by . freddy 15:40 Discharged to home ambulatory, dd2 15:40 Condition: stable 15:40 Discharge instructions given to patient, Instructed on discharge instructions, follow up and referral plans. medication usage, Demonstrated understanding of instructions, follow-up care, medications, Prescriptions given X 3, 15:41 Patient left the ED. dd2 NIH Stroke Scale - NIH Stroke Score Date: 01/17/2025 Time: 15:00 Total Score = 0 10. Dysarthria (speech clarity - read or repeat words) - 0(Normal) 11. Extinction and Inattention (visual/tactile/auditory/spatial/personal) - 0(No abnormality) 1a. Level of Consciousness (LOC) - 0(Alert) 1b. Level of Consciousness (LOC) (Month \T\ Age) - 0(Both) 1c. LOC Commands (Open \T\ Closes Eyes/Pharmacists) - 0(Both) 2. Best Gaze (Lateral Gaze Paresis) - 0(Normal) 3. Visual Field Loss - 0(No visual loss) 4. Facial Palsy - 0(Normal) 5a. Left Arm: Motor (10-second hold) - 0(No drift) 5b. Right Arm: Motor (10-second hold) - 0(No drift) 6a. Left Leg: Motor (5-second hold - always test supine) - 0(No drift) 6b. Right Leg: Motor (5-second hold - always test supine) - 0(No drift) 7. Limb Ataxia (finger/nose \T\ heel/marcum - test with eyes open) - 0(Absent) 8. Sensory Loss (pinprick arms/legs/face) - 0(Normal) 9. Best Language: Aphasia (description/naming/reading) - 0(No aphasia) Initials: freddy Signatures: Dispatcher [employer] Yunior Ann MD MD cha Benton, Danielle, RN Cindy Pitts, RN RN me1 BESSIE GALLEGOS RN RN dd2 Destiny Randall, Reg Reg gl
[2025-01-17] MEDS ORDERED: CEFTRIAXONE 1000 MG/VIAL ONE (15:14)
[2025-01-17 15:52] LABS: Anisocytosis 1+; Blood Morphology Comment NOTED (NOT SEEN); Hypochromasia 1+; Microcytosis 1+; Platelet Estimate ADEQ; White Blood Cell Scan OK (OK)
[2025-01-17 18:08] VITALS: BP 124/78; TEMP 97.7; O2SAT 100
--- NOTE | 2025-01-18 11:42 | EKG ---
Test Date: 2025-01-17 Test Time: 14:03:07 [employer]ip Network Technician: LIANET MEASUREMENT RESULTS: Intervals: Rate: 81 IN: 124 QRSD: 88 QT: 356 QTc: 413 [place]: P: 64 IN: 124 QRS: 75 T: 54 INTERPRETIVE STATEMENTS: Normal sinus rhythm with sinus arrhythmia Normal ECG Compared to ECG 11/10/2024 11:55:08 No significant changes Electronically Signed On 01-18-25 11:39:46 CDT by Avel Salcedo
== END 2025-01-17 15:41 | disposition home or self-care (01) ==
LOC: ER 11:51
DX: N39.0 Urinary tract infection, site not specified (principal); R53.1 Weakness
CPT/HCPCS: 87088; 85025; 81001; 87086; 36415; 81025; 84484; 80053; 70450; J8597; J2405; J7030; J0696; 93005